=== PATIENT | male | born 1945 | race Caucasian/White ===

== ENCOUNTER 2017-08-16 11:51 | Emergency (ER) | payer OTHER ==
[2017-08-16 11:57] VITALS: BP 124/61; BMI 36.5
--- NOTE | 2017-08-16 14:00 | DR.MBACK ---
HPI - Time Seen Time seen: 14:30 - PCP Primary Care Physician: - HPI Comment HPI Comment: PAIN GETTING WORSE. - Complaint Chief Complaint Doctors Comments: MID AND LOWER BACK PAIN TIMES 4 DAYS DUE TO A FALL. Chief Complaint:: PT C/O TRIPPING AND FALLING ON WEDNESDAY NIGHT PT HIS THE CEMENT OUT SIDE .. PT C/O MID BACK PAIN.. PT C/O DULL PAIN ,, Self Treatment fo Chief Complaint: PT TOOK TYLENOL. - Reviewed Nurses Notes Review: Yes - Source History Provided: Patient, Family Member - Mode of Arrival Mode of Arrival: Ambulatory - Timing Onset of Chief Complaint: 08/12/17 - Duration Duration: Constant - Location Back Pain Location: Lower, BACK, Lumbar (AND MID BACK.) Radiation To: None - Severity Severity: Moderate - Quality Quality: Sharp - Context Onset: Fall History of: None - Modifying Factors Worsened By: Twisting - Associated Signs and Symptoms Back Pain Symptoms: None Numbness: None Weakness: None PMH - PMH Past Medical History: Yes Past Surgical History: Yes Surgical History: Angioplasty/Stents Past Surgical History Comment: MITRO VALVE CLIP, 5 CARDIAC STENTS, PACE MAKER, DEFIBRILATOR. - Family History History of Family Medical Conditions: No Family Medical History: Cancer, Heart Failure - Social History Does patient currently use any type of tobacco product: No Have you used tobacco products in the last 12 months: No Type of Tobacco Use: None Does any household member use tobacco: No Alcohol Use: None Do you use any recreational Drugs:: No Lives With: Family Lives Where: Home - infectious screening In the last 2 months have you had wt loss of >10#?: NO Have you had fever, night sweats or hemotysis?: No Have you traveled outside the country in the last 6 months?: No Isolation: Standard ROS - Review of Systems Constitutional: No Symptoms Reported Eyes: No Symptoms Reported ENTM: No Symptoms Reported Respiratoy: No Symptoms Reported Cardiovascular: No Symptoms Reported Gastrointestinal/Abdominal: No Symptoms Reported Genitourinary: No Symptoms Reported Neurological: No Symptoms Reported Musculoskeletal: Back Pain, Muscle Pain, Back Integumentary: No Symptoms Reported Hematologic/Lymphatic: No Symptoms Reported Endocrine: No Symptoms Reported All Other Systems: Reviewed and Negative PE - Vital Signs Vitals: Temperature 98.0 F Pulse Rate 76 Respiratory Rate 20 Blood Pressure 124/61 O2 Sat by Pulse Oximetry 96 - General Limitations: No Limitations General Appearance: Alert - Head Head Exam: Normal Inspection - Eyes Eye exam: Normal Appearance - ENT ENT Exam: Normal External Ear Exam - Chest Chest Inspection: Symmetric Chest Wall Rise - Respiratory Respiratory Exam: Normal Lung Sounds Bilat Respiratory Exam: Bilateral Clear to Auscultation - Cardiovascular Cardiovascular Exam: Regular Rate, Normal Rhythm, Normal Heart Sounds - Abdominal Exam Abdominal Exam: Normal Inspection - Rectal Rectal Exam: Deferred - Genitourinary Exam: Male: Deferred - Extremities Extremities Exam: Normal Inspection - Back Back Exam: Paraspinal Tenderness (MID AND LOWER BACK.) - Neurological Neurological Exam: Alert, Oriented X3. negative: Motor Sensory Deficit - Psychiatric Psychiatric Exam: Normal Affect, Normal Mood - Skin Skin Exam: Normal Color MDM - Additional Information Additional Information Obtained From: Family - Differential Diagnosis Differential Diagnosis: DJD, Fracture, Musculoskeletal Pain, Strain Course - Treatment Treatment: SEE ORDERS. IM MEDSX IN ED. - Education/Counseling Education/Counseling: Patient, Family, Education Educated On: Treatment, Diagnosis, Needs for Follow Up ROR - XRAY XRAY Interpreted by: Radiologist XRAY Findings: REPORT DISCUSS WITH PATIENT. - Diagnosis Discharge Problem: Back strain Qualifiers: Encounter type: initial encounter Qualified Code(s): S39.012A - Strain of muscle, fascia and tendon of lower back, initial encounter Strain of thoracic spine Qualifiers: Encounter type: initial encounter Qualified Code(s): S29.019A - Strain of muscle and tendon of unspecified wall of thorax, initial encounter Lumbar spine strain Qualifiers: Encounter type: initial encounter Qualified Code(s): S39.012A - Strain of muscle, fascia and tendon of lower back, initial encounter - Discharge Plan Disposition: 01 HOME, SELF-CARE Condition: Stable Prescriptions: Ibuprofen [MOTRIN TAB 600 MG *] 600 mg PO TID PRN #30 tab PRN Reason: Pain/Inflammation Methylprednisolone Dosepak 4Mg [MEDROL DOSEPAK (4 mg tab x 21)] 1 shanon PO ONCE # 1 shanon - Follow ups/Referrals Follow ups/Referrals: Kate Bobo [Primary Care Provider] - 3 days - Instructions Instructions: Mid-Back Strain, Lumbosacral Strain Additional Instructions: RETURN TO ED IF WORSE.
[2017-08-16] MEDS ORDERED: TORADOL 60 MG VIAL IM ONE (14:38)
[2017-08-16] MEDS ORDERED: NORFLEX INJ IM ONE (14:38)
[2017-08-16] MEDS ORDERED: TORADOL 60 MG VIAL ONE (14:39)
[2017-08-16] MEDS ORDERED: NORFLEX INJ ONE (14:40)
--- NOTE | 2017-08-16 14:55 | RAD ---
HISTORY: Injury, fall, low back pain Study: Lumbar spine AP, lateral, spot Comparison: None Findings: The bones are osteopenic. The alignment is normal. The lumbar vertebral bodies are of average height. There is mild loss of height in T11 and T12 age indeterminate. Degenerative disc disease is present at L1-2, L4-5, L5-S1. The pedicles are intact. The SI joints are normal. Diffuse bilateral facet dege nerative joint disease is present. Diffuse aortic calcifications are incidentally noted. No aneurysma l dilatation is identified. IMPRESSION: Mild loss of height T11, T12 age indeterminate Osteopenia Multilevel degenerative disc disease as described Diffuse bilateral facet degenerative joint disease Reported By:
--- NOTE | 2017-08-16 16:29 | CT ---
HISTORY: Back pain status post fall. Study: CT thoracic spine without contrast Comparison: Lumbar spine series dated same day. Technique: Multiple axial images of the thoracic spine were obtained from the thoracic inlet to the t horacolumbar junction. Sagittal and coronal reconstructions were performed and reviewed. Dose reduc tion techniques including Automated Exposure Control (AEC) and adjustment of mA and kV were utilized. Findings: Anterior compression fractures are seen of the T10, T11, and T12 vertebral bodies of unknown chronici ty. These do not appear significantly changed given technique from same day comparison. No significan t retropulsion of fracture fragments or spinal canal stenosis. Approximately 35% anterior disc height loss at T10, 42% anterior disc height loss at T11, and 30% anterior disc height loss at T12. No othe r obvious fractures. No significant spinal canal stenosis or neural foraminal narrowing. Extensive va scular calcifications of the thoracic and abdominal aorta. Aneurysmal dilatation of the thoracic aort ic root to 4.7 cm. Cardiomegaly. Postsurgical changes status post CABG. Remaining soft tissue structu res are unremarkable. IMPRESSION: 1. Anterior compression fractures of the T10 through T12 vertebral bodies of unknown chronicity as a shin. If patient has point tenderness, recommend MRI of the spine on outpatient basis. 2. Aneurysmal dilatation of the thoracic aortic root to 4.7 cm. Reported By:
== END 2017-08-16 16:53 | disposition home or self-care (01) ==
LOC: ER 12:06
DX: S39.012A Strain of muscle, fascia and tendon of lower back, initial encounter (principal); S29.019A Strain of muscle and tendon of unspecified wall of thorax, initial encounter; I71.2 Thoracic aortic aneurysm, without rupture; M85.80 Other specified disorders of bone density and structure, unspecified site
CPT/HCPCS: 72100; 72128; 96372; 99282; 99283; J1885; J2360

== ENCOUNTER 2017-09-12 11:05 | Emergency (ER) | payer OTHER ==
[2017-09-12 11:15] VITALS: BP 143/64; BMI 37.7
--- NOTE | 2017-09-12 11:51 | DR.GENAD ---
HPI - PCP Primary Care Physician: sue - HPI Comment HPI Comment: PATIENT HAD HYPOGLYCEMIC EPISODE AT HOME. FEW DAYS AGO SAME THING HAPPEN. PATIENT ON ORAL AGENTS FOR DIABETES. GIVEN FOOD IN ED. - Complaint/Symptoms Chief Complaint Doctors Comments: LOW GLUCOSE AT HOME. Chief Complaint:: "sandy was 45 pt took meds this moring without checking sugar , he is feeling dizzy" - Nurses notes reviewed Nurses Notes Review: Yes - Source History Provided: Patient - Mode of Arrival Mode of Arrival: Wheelchair - Timing Onset of Chief Complaint: 09/12/17 Came on: Suddenly - Duration Duration: Since Onset Duration: Minutes - Severity Severity: Moderate PMH - PMH Past Medical History: Yes Past Medical History: Diabetes, GERD, Hypertension Past Surgical History: Yes Surgical History: Other Past Surgical History Comment: pacemaker,stents - Family History History of Family Medical Conditions: Yes Family Medical History: Cancer, Heart Failure - Social History Does patient currently use any type of tobacco product: No Have you used tobacco products in the last 12 months: No Type of Tobacco Use: None Does any household member use tobacco: No Alcohol Use: None Do you use any recreational Drugs:: No Lives With: Family Lives Where: Home - infectious screening In the last 2 months have you had wt loss of >10#?: NO Have you had fever, night sweats or hemotysis?: No Have you traveled outside the country in the last 6 months?: No Isolation: Standard ROS - Review of Systems Constitutional: Weakness, Fatigue. negative: Chills, Fever Eyes: Blurred Vision. negative: Eye Pain, Discharge ENTM: No Symptoms Reported. negative: Ear Discharge, Nose Discharge, Nose Congestion, Throat Pain Respiratoy: No Symptoms Reported. negative: Productive Cough, Short of Breath, Wheezing, Hemoptysis Cardiovascular: No Symptoms Reported. negative: Chest Pain, Edema Gastrointestinal/Abdominal: No Symptoms Reported. negative: Abdominal Pain, Diarrhea, Nausea, Vomiting Genitourinary: No Symptoms Reported. negative: Dysuria, Frequency, Hematuria Neurological: Weakness, Dizziness. negative: Headache Musculoskeletal: Muscle Pain Integumentary: No Symptoms Reported Hematologic/Lymphatic: Easy Bruising Endocrine: Other (HYPOGLYCEMIA) All Other Systems: Reviewed and Negative PE - Vital Signs Vitals: Temperature 97.5 F Pulse Rate 88 Respiratory Rate 18 Blood Pressure 143/64 O2 Sat by Pulse Oximetry 98 - General Limitations: No Limitations General Appearance: Alert - Head Head Exam: Normal Inspection - Eyes Eye exam: Normal Appearance - ENT ENT Exam: Normal External Ear Exam External Ear Exam: Normal External Inspection TM/Canal Exam: Bilateral Normal Nose Exam: Normal Nose Exam Mouth Exam: Normal Inspection Throat Exam: Normal Inspection - Neck Neck Exam: Trachea Midline - Chest Chest Inspection: Normal Inspection - Respiratory Respiratory Exam: Normal Lung Sounds Bilat Respiratory Exam: Bilateral Clear to Auscultation - Cardiovascular Cardiovascular Exam: Regular Rate, Normal Rhythm, Normal Heart Sounds - Abdominal Exam Abdominal Exam: Normal Bowel Sounds, Soft. negative: Tenderness - Extremities Extremities Exam: Normal Inspection - Back Back Exam: Normal Inspection - Neurologic Neurological Exam: Alert, Oriented X3 - Psychiatric Psychiatric Exam: Normal Affect, Normal Mood - Skin Skin Exam: Normal Color MDM - Additional Information Additional Information Obtained From: Family - Differential Diagnosis Differential Diagnosis: HYPOGLYCEMIA, AMS Course - Treatment Treatment: SEE ORDERS. - Reevaluation 1st: Improved (WITH IV D50 AND ORAL CALORIES.) - Education/Counseling Education/Counseling: Patient, Family, Education Educated On: Treatment, Diagnosis, Needs for Follow Up ROR - Labs Reviewed Laboratory Results Reviewed?: Yes Result Diagrams: 09/12/17 13:02 09/12/17 13:02 Laboratory: WBC 5.4 X10^3/uL (3.6-10.0) 09/12/17 13:02 RBC 3.73 X10^6/uL (4.7-6.0) L 09/12/17 13:02 Hgb 11.9 g/dL (13.5-18.0) L 09/12/17 13:02 Hct 36.0 % (42.0-54.0) L 09/12/17 13:02 MCV 96.5 fL (80.0-100.0) 09/12/17 13:02 MCH 31.9 pg (27.0-34.0) 09/12/17 13:02 MCHC 33.1 g/dL (33.0-35.0) 09/12/17 13:02 RDW 18.5 % (11.6-16.5) H 09/12/17 13:02 Plt Count 216 X10^3/uL (150.0-450.0) 09/12/17 13:02 MPV 8.8 fL (7.4-11.0) 09/12/17 13:02 Neut % (Auto) 78.7 % (42.0-75.0) H 09/12/17 13:02 Lymph % (Auto) 15.4 % (21.0-51.0) L 09/12/17 13:02 [place] % (Auto) 5.5 % (0.0-13.0) 09/12/17 13:02 Eos % (Auto) 0.0 % (0.9-2.9) L 09/12/17 13:02 Baso % (Auto) 0.4 % (0.2-1.0) 09/12/17 13:02 Neut # (Auto) 4.2 x10^3/uL (2.2-4.8) 09/12/17 13:02 Lymph # (Auto) 0.8 X10^3/uL (1.3-2.9) L 09/12/17 13:02 [place] # (Auto) 0.3 x10^3/uL (0.3-0.8) 09/12/17 13:02 Eos # (Auto) 0.0 x10^3/uL (0.0-0.2) 09/12/17 13:02 Baso # (Auto) 0.0 X10^3/uL (0.0-0.1) 09/12/17 13:02 Absolute Nucleated RBC 0.1 /100WBC 09/12/17 13:02 Sodium 141 mmol/L (136-145) 09/12/17 13:02 Corrected Sodium 142 mmol/L (136-145) 09/12/17 13:02 Potassium 5.0 mmol/L (3.5-5.1) 09/12/17 13:02 Chloride 103 mmol/L (98-107) 09/12/17 13:02 Carbon Dioxide 18.8 mmol/L (21-32) L 09/12/17 13:02 BUN 34 mg/dL (7-18) H 09/12/17 13:02 Creatinine 1.61 mg/dL (0.70-1.30) H 09/12/17 13:02 Est GFR (MDRD) Af Amer 55 (>60) L 09/12/17 13:02 Est GFR (MDRD) Non-Af 45 (>60) L 09/12/17 13:02 Glucose 146 mg/dL (65-99) H 09/12/17 13:02 POC Glucose (mg/dL) 196 mg/dL (65-99) H 09/12/17 14:57 Calcium 8.8 mg/dL (8.5-10.1) 09/12/17 13:02 Corrected Calcium 9.4 mg/dL (8.5-10.1) 09/12/17 13:02 Total Bilirubin 0.40 mg/dL (0.2-1.0) 09/12/17 13:02 AST 21 Units/L (15-37) 09/12/17 13:02 ALT 18 Units/L (12-78) 09/12/17 13:02 Alkaline Phosphatase 95 Units/L (46-116) 09/12/17 13:02 Total Protein 7.0 g/dL (6.4-8.2) 09/12/17 13:02 Albumin 3.3 g/dL (3.4-5.0) L 09/12/17 13:02 Globulin 3.7 g/dL (2.5-4.5) 09/12/17 13:02 Albumin/Globulin Ratio 0.9 Ratio (1.1-2.1) L 09/12/17 13:02 Specimen Type Random urine 09/12/17 14:38 Urine Color Dark yellow (YELLOW) 09/12/17 14:38 Urine Appearance Clear (CLEAR) 09/12/17 14:38 Urine pH 5.0 (5.0 - 8.0) 09/12/17 14:38 Ur Specific [place] 1.015 (1.000-1.030) 09/12/17 14:38 Urine Protein Negative (NEGATIVE) 09/12/17 14:38 Urine Glucose (UA) Negative (NEGATIVE) 09/12/17 14:38 Urine Ketones 1+ (NEGATIVE) 09/12/17 14:38 Urine Occult Blood Negative (NEGATIVE) 09/12/17 14:38 Urine Nitrite Negative (NEGATIVE) 09/12/17 14:38 Urine Bilirubin Negative (NEGATIVE) 09/12/17 14:38 Urine Urobilinogen Normal (NORMAL) 09/12/17 14:38 Ur Leukocyte Esterase Negative (NEGATIVE) 09/12/17 14:38 - Diagnosis Discharge Problem: Hypoglycemia - Discharge Plan Disposition: 01 HOME, SELF-CARE Condition: Stable - Follow ups/Referrals Follow ups/Referrals: Zaina Bobo [Primary Care Provider] - 09/13/17 - Instructions Instructions: Hypoglycemia, [id number] Additional Instructions: RETURN TO ED IF WORSE. GLUCOSE CHECK EVERY 4HS AND CHART AND TAKE TO YOUR
[2017-09-12 13:10] LABS: BASOPHILS % (AUTO) 0.4 % (0.2-1.0); HEMOGLOBIN 11.9 g/dL (13.5-18.0); LYMPHOCYTES # (AUTO) 0.8 X10^3/uL (1.3-2.9); LYMPHOCYTES % (AUTO) 15.4 % (21.0-51.0); MEAN CORPUSCULAR HEMOGLOBIN 31.9 pg (27.0-34.0); MEAN CORPUSCULAR HGB CONC 33.1 g/dL (33.0-35.0); MEAN CORPUSCULAR VOLUME 96.5 fL (80.0-100.0); MEAN PLATELET VOLUME 8.8 fL (7.4-11.0); MONOCYTES # (AUTO) 0.3 x10^3/uL (0.3-0.8); MONOCYTES % (AUTO) 5.5 % (0.0-13.0); NEUTROPHILS # (AUTO) 4.2 x10^3/uL (2.2-4.8); NEUTROPHILS % (AUTO) 78.7 % (42.0-75.0); PLATELET COUNT 216 X10^3/uL (150.0-450.0); RED BLOOD COUNT 3.73 X10^6/uL (4.7-6.0); RED CELL DISTRIBUTION WIDTH 18.5 % (11.6-16.5); WHITE BLOOD COUNT 5.4 X10^3/uL (3.6-10.0)
[2017-09-12 13:20] LABS: ALBUMIN 3.3 g/dL (3.4-5.0); CALCIUM 8.8 mg/dL (8.5-10.1); CARBON DIOXIDE 18.8 mmol/L (21-32); COR CA(FOR HYPOALB) 9.4 mg/dL (8.5-10.1); CREATININE 1.61 mg/dL (0.70-1.30)
[2017-09-12 14:47] LABS: BILIRUBIN,URINE NEGATIVE (NEGATIVE); BLOOD/HEMOGLOBIN,URINE NEGATIVE (NEGATIVE); GLUCOSE, URINE NEGATIVE (NEGATIVE); KETONES,URINE 1+ (NEGATIVE); LEUKOCYTE ESTERASE ,URINE NEGATIVE (NEGATIVE); NITRITES,URINE NEGATIVE (NEGATIVE); PROTEIN,URINE NEGATIVE (NEGATIVE); UROBILINOGEN,URINE NORMAL (NORMAL)
[2017-09-12 14:48] LABS: APPEARANCE,URINE CLEAR (CLEAR); COLOR,URINE DARK YELLOW (YELLOW)
== END 2017-09-12 15:15 | disposition home or self-care (01) ==
LOC: ER 11:26
DX: E16.2 Hypoglycemia, unspecified (principal)
CPT/HCPCS: 36415; 80053; 81003; 85025; 99281; 99282; 99283

== ENCOUNTER 2019-01-22 10:20 | Observation (INO) ==
[2019-01-22 10:26] VITALS: BMI 32.1
[2019-01-22] MEDS ORDERED: DUONEB 0.5 MG/3 MG NEB ONE (10:40)
--- NOTE | 2019-01-22 10:44 | DR.URIAD ---
HPI - Time Seen Time seen: 10:40 - PCP Primary Care Physician: MARINA - HPI Comment HPI Comment: 73 y/o with home oxygen for copd now with cough, head congestion and wheezing for the past week; productive sputum which acutely worsened this a m; he is on oxygen now and feels sob is at baseline; no fever or chills, nausea or vomiting. - Complaint Chief Complaint:: PT C/O C/C/C SHORTNESS OF BREATH. PT'S FAMILY STATES PT GETS WORSE AT NIGHT. PT STATES HE HAS BEEN COUGHING UP THICK YELLOW SPUTUM. PT'S F AMILY STATES HE WAS RECENTLY IN THE HOSPITAL FOR HEART FAILURE. FAMILY AND PT STATES THIS HAS BEEN GOING ON FOR APPROX 2 WEEKS BUT IT IS JUST GETTING WORSE THIS MORNING. - Source History Provided: Patient - Mode of Arrival Mode of Arrival: Ambulatory - Timing Onset of Chief Complaint: 01/08/19 - Quality Shortness of Breath: Mild PMH - PMH Past Medical History: Yes Past Medical History: COPD, Coronary Artery Disease, Diabetes, Dyslipidemia, GERD, Hypertension, CT, Renal Disease Past Medical History Comment: AFIB Past Surgical History: Yes Surgical History: Angioplasty/Stents, CABG/Valve Surgery, Other Past Surgical History Comment: HEMMRHOID - Family History History of Family Medical Conditions: Yes Family Medical History: Cancer, Heart Failure - Social History Does any household member use tobacco: No Alcohol Use: None Do you use any recreational Drugs:: No Lives With: Family Lives Where: Home - infectious screening In the last 2 months have you had wt loss of >10#?: NO Have you had fever, night sweats or hemotysis?: No Have you traveled outside the country in the last 6 months?: No Isolation: Standard ROS - Review of Systems Constitutional: No Symptoms Reported Eyes: No Symptoms Reported Respiratoy: See HPI Cardiovascular: No Symptoms Reported Gastrointestinal/Abdominal: No Symptoms Reported Genitourinary: No Symptoms Reported Neurological: No Symptoms Reported Musculoskeletal: Joint Pain Integumentary: No Symptoms Reported Hematologic/Lymphatic: No Symptoms Reported Endocrine: No Symptoms Reported (no sweating or flushing) Psychiatric: No Symptoms Reported PE - General Limitations: No Limitations General Appearance: Alert, In No Apparent Distress (nc in place) - Head Head Exam: Normal Inspection - Eyes Eye exam: Normal Appearance - ENT ENT Exam: Normal Exam - Neck Neck Exam: Normal Inspection - Chest Chest Inspection: Normal Inspection - Respiratory Respiratory Exam: Prolonged Expiratory Phase Respiratory Exam: Bilateral Crackles (rul/lll), Bilateral Decreased Breath Sounds - Cardiovascular Cardiovascular Exam: Regular Rate, Normal Rhythm - Abdominal Exam Abdominal Exam: Normal Inspection, Normal Bowel Sounds, Soft - Back Back Exam: Normal Inspection, Full ROM, Tenderness - Neurologic Neurological Exam: Alert, Oriented X3, CN II-XII Intact - Psychiatric Psychiatric Exam: Normal Affect, Normal Mood - Skin Skin Exam: Warm, Dry - Vital Signs Vitals: Temperature 97.9 F Pulse Rate 97 Respiratory Rate 20 Blood Pressure 121/69 O2 Sat by Pulse Oximetry 96 Course - Reevaluation 1st: Improved - Consultation Call Returned: 15:10 (Dr Oswald accepts pt) ROR - Labs Reviewed Result Diagrams: 01/22/19 10:50 01/22/19 10:50 - XRAY XRAY Interpreted by: Radiologist (Lingular atelectasis versus early infiltrate.) - Labs Reviewed Laboratory: WBC 6.2 X10^3/uL (3.6-10.0) 01/22/19 10:50 RBC 3.89 X10^6/uL (4.7-6.0) L 01/22/19 10:50 Hgb 13.3 g/dL (13.5-18.0) L 01/22/19 10:50 Hct 39.1 % (42.0-54.0) L 01/22/19 10:50 MCV 100.7 fL (80.0-100.0) H 01/22/19 10:50 MCH 34.1 pg (27.0-34.0) H 01/22/19 10:50 MCHC 33.9 g/dL (33.0-35.0) 01/22/19 10:50 RDW 14.4 % (11.6-16.5) 01/22/19 10:50 Plt Count 171 X10^3/uL (150.0-450.0) 01/22/19 10:50 MPV 9.4 fL (7.4-11.0) 01/22/19 10:50 Neut % (Auto) 69.0 % (42.0-75.0) 01/22/19 10:50 Lymph % (Auto) 20.3 % (21.0-51.0) L 01/22/19 10:50 [place] % (Auto) 9.1 % (0.0-13.0) 01/22/19 10:50 Eos % (Auto) 1.2 % (0.9-2.9) 01/22/19 10:50 Baso % (Auto) 0.4 % (0.2-1.0) 01/22/19 10:50 Neut # (Auto) 4.3 x10^3/uL (2.2-4.8) 01/22/19 10:50 Lymph # (Auto) 1.3 X10^3/uL (1.3-2.9) 01/22/19 10:50 [place] # (Auto) 0.6 x10^3/uL (0.3-0.8) 01/22/19 10:50 Eos # (Auto) 0.1 x10^3/uL (0.0-0.2) 01/22/19 10:50 Baso # (Auto) 0.0 X10^3/uL (0.0-0.1) 01/22/19 10:50 Absolute Nucleated RBC 0.0 /100WBC 01/22/19 10:50 Sodium 142 mmol/L (136-145) 01/22/19 10:50 Corrected Sodium 142 mmol/L (136-145) 01/22/19 10:50 Potassium 4.2 mmol/L (3.5-5.1) 01/22/19 10:50 Chloride 105 mmol/L (98-107) 01/22/19 10:50 Carbon Dioxide 31.3 mmol/L (21-32) 01/22/19 10:50 BUN 18 mg/dL (7-18) 01/22/19 10:50 Creatinine 1.30 mg/dL (0.70-1.30) 01/22/19 10:50 Est GFR (MDRD) Af Amer > 60 (>60) 01/22/19 10:50 Est GFR (MDRD) Non-Af 58 (>60) L 01/22/19 10:50 Glucose 111 mg/dL (65-99) H 01/22/19 10:50 Calcium 8.6 mg/dL (8.5-10.1) 01/22/19 10:50 Corrected Calcium TNP 01/22/19 10:50 Total Bilirubin 0.70 mg/dL (0.2-1.0) 01/22/19 10:50 AST 21 Units/L (15-37) 01/22/19 10:50 ALT 8 Units/L (12-78) L 01/22/19 10:50 Alkaline Phosphatase 76 Units/L (46-116) 01/22/19 10:50 Total Protein 7.0 g/dL (6.4-8.2) 01/22/19 10:50 Albumin 3.4 g/dL (3.4-5.0) 01/22/19 10:50 Globulin 3.6 g/dL (2.5-4.5) 01/22/19 10:50 Albumin/Globulin Ratio 0.9 Ratio (1.1-2.1) L 01/22/19 10:50 Opioid - Opioid Risk Tool Total: 0 Total Score Risk Category: Low Risk - Diagnosis Discharge Problem: Lingular pneumonia, Dyspnea on exertion, COPD exacerbation - Discharge Plan Disposition: ADMITTED INPATIENT Condition: Stable - Follow ups/Referrals Follow ups/Referrals: Kate Bobo [Primary Care Provider] - 3 days - Instructions Instructions: Community-Acquired Pneumonia, Adult
[2019-01-22] MEDS ORDERED: DUONEB 0.5 MG/3 MG ONE (10:45)
[2019-01-22 11:12] LABS: BASOPHILS % (AUTO) 0.4 % (0.2-1.0); EOSINOPHILS # (AUTO) 0.1 x10^3/uL (0.0-0.2); EOSINOPHILS % (AUTO) 1.2 % (0.9-2.9); HEMATOCRIT 39.1 % (42.0-54.0); HEMOGLOBIN 13.3 g/dL (13.5-18.0); LYMPHOCYTES # (AUTO) 1.3 X10^3/uL (1.3-2.9); LYMPHOCYTES % (AUTO) 20.3 % (21.0-51.0); MEAN CORPUSCULAR HEMOGLOBIN 34.1 pg (27.0-34.0); MEAN CORPUSCULAR HGB CONC 33.9 g/dL (33.0-35.0); MEAN CORPUSCULAR VOLUME 100.7 fL (80.0-100.0); MEAN PLATELET VOLUME 9.4 fL (7.4-11.0); MONOCYTES # (AUTO) 0.6 x10^3/uL (0.3-0.8); MONOCYTES % (AUTO) 9.1 % (0.0-13.0); NEUTROPHILS # (AUTO) 4.3 x10^3/uL (2.2-4.8); PLATELET COUNT 171 X10^3/uL (150.0-450.0); RED BLOOD COUNT 3.89 X10^6/uL (4.7-6.0); RED CELL DISTRIBUTION WIDTH 14.4 % (11.6-16.5); WHITE BLOOD COUNT 6.2 X10^3/uL (3.6-10.0)
[2019-01-22 11:26] LABS: ALANINE AMINOTRANSFERASE 8 Units/L (12-78); ALBUMIN 3.4 g/dL (3.4-5.0); ALKALINE PHOSPHATASE 76 Units/L (46-116); ASPARTATE AMINO TRANSFERASE 21 Units/L (15-37); BLOOD UREA NITROGEN 18 mg/dL (7-18); CALCIUM 8.6 mg/dL (8.5-10.1); CARBON DIOXIDE 31.3 mmol/L (21-32); CHLORIDE 105 mmol/L (98-107); COR NA(FOR HYPERGLY) 142 mmol/L (136-145); SODIUM 142 mmol/L (136-145); eGFR NON BLACK RACES 58 (>60)
[2019-01-22] MEDS ORDERED: LASIX IM ONE (12:36)
[2019-01-22] MEDS ORDERED: ROCEPHIN VIAL 1 GRAM IM ONE (12:37)
--- NOTE | 2019-01-22 13:54 | RAD ---
HISTORY: Cough and congestion. Study: PA and lateral chest. Comparison: None available. Findings: The trachea is midline. The cardiac silhouette is enlarged without overt signs of failure. Prominent perihilar vasculature. Postsurgical changes status post CABG. Multi lead left chest cardiac pacemaker. Chronic emphysematous changes. Lingular atelectasis versus early infiltrate. No significant pleural effusion or pneumothorax. The bony thorax is unremarkable. IMPRESSION: Lingular atelectasis versus early infiltrate. Reported By:
[2019-01-22] MEDS ORDERED: LASIX IVP ONE ×2 (13:55→14:44)
[2019-01-22] MEDS ORDERED: ROCEPHIN VIAL 1 GRAM IVP ONE (13:55)
[2019-01-22] MEDS ORDERED: ROCEPHIN VIAL 1 GRAM ONE (13:57)
[2019-01-22] MEDS ORDERED: LASIX ONE ×2 (13:57→14:44)
[2019-01-22] MEDS ORDERED: ZITHROMAX INJ 500 MG VIAL ONE (15:49)
[2019-01-22] MEDS ORDERED: NS 250 ML IV 500 ML ONE (15:49)
[2019-01-22] MEDS: ZITHROMAX INJ 500 MG VIAL 500 MG in NS 250 ML IV 250 ML IV SCH (16:14)
[2019-01-22] MEDS: ROCEPHIN VIAL 1 GRAM IVP SCH (16:17)
[2019-01-22] MEDS: XOPENEX 1.25 MG/3 ML NEBULE NEB SCH (17:14)
[2019-01-22] MEDS ORDERED: DUONEB 0.5 MG/3 MG NEB SCH (18:00)
[2019-01-22] MEDS: LASIX IVP SCH (20:38)
[2019-01-22] MEDS: AMBIEN PO PRN (22:33)
[2019-01-22] MEDS ORDERED: STERILE WATER IRRIGATION ONE (22:47)
[2019-01-23] MEDS: XOPENEX 1.25 MG/3 ML NEBULE NEB SCH ×5 (01:10→17:05)
[2019-01-23 05:34] LABS: BASOPHILS % (AUTO) 0.5 % (0.2-1.0); EOSINOPHILS # (AUTO) 0.1 x10^3/uL (0.0-0.2); HEMATOCRIT 36.4 % (42.0-54.0); HEMOGLOBIN 12.2 g/dL (13.5-18.0); LYMPHOCYTES # (AUTO) 1.6 X10^3/uL (1.3-2.9); LYMPHOCYTES % (AUTO) 21.9 % (21.0-51.0); MEAN CORPUSCULAR HGB CONC 33.4 g/dL (33.0-35.0); MEAN CORPUSCULAR VOLUME 101.8 fL (80.0-100.0); MEAN PLATELET VOLUME 9.8 fL (7.4-11.0); MONOCYTES # (AUTO) 0.8 x10^3/uL (0.3-0.8); MONOCYTES % (AUTO) 11.6 % (0.0-13.0); NEUTROPHILS # (AUTO) 4.6 x10^3/uL (2.2-4.8); PLATELET COUNT 144 X10^3/uL (150.0-450.0); RED BLOOD COUNT 3.58 X10^6/uL (4.7-6.0); WHITE BLOOD COUNT 7.2 X10^3/uL (3.6-10.0)
[2019-01-23 05:48] LABS: ALANINE AMINOTRANSFERASE 6 Units/L (12-78); ALKALINE PHOSPHATASE 61 Units/L (46-116); ASPARTATE AMINO TRANSFERASE 16 Units/L (15-37); BLOOD UREA NITROGEN 17 mg/dL (7-18); CALCIUM 8.3 mg/dL (8.5-10.1); CARBON DIOXIDE 29.3 mmol/L (21-32); CHLORIDE 104 mmol/L (98-107); COR CA(FOR HYPOALB) 9.1 mg/dL (8.5-10.1); SODIUM 144 mmol/L (136-145); TOTAL PROTEIN 6.5 g/dL (6.4-8.2); eGFR NON BLACK RACES > 60 (>60)
[2019-01-23] MEDS ORDERED: POTASSIUM CHL 60 MEQ/NS 0.45% 500 ML IV PRN (05:50)
[2019-01-23] MEDS ORDERED: MICRO K EXTEN CAP 10 MEQ PO PRN (05:50)
[2019-01-23] MEDS ORDERED: K-DUR TAB 20 MEQ PO PRN (05:50)
[2019-01-23] MEDS ORDERED: POTASSIUM CHL 40 MEQ/NS 0.45% 500 ML IV PRN (05:50)
[2019-01-23] MEDS ORDERED: POTASSIUM CHLORIDE LIQ 20 MEQ UDC PO PRN (05:50)
[2019-01-23] MEDS ORDERED: KLOR-CON PO PRN (05:50)
[2019-01-23] MEDS ORDERED: K-RIDER 10 MEQ/NS 100 ML 10 MEQ/100 ML BAG IV PRN (05:50)
[2019-01-23] MEDS ORDERED: ROBITUSSIN DM PO PRN (05:54)
[2019-01-23] MEDS: ROCEPHIN VIAL 1 GRAM IVP SCH (08:23)
[2019-01-23] MEDS: ZITHROMAX INJ 500 MG VIAL 500 MG in NS 250 ML IV 250 ML IV SCH (08:25)
[2019-01-23] MEDS: LASIX IVP SCH ×2 (08:26→21:00)
--- NOTE | 2019-01-23 08:29 | RAD ---
HISTORY: Shortness of breath, COPD, coronary artery disease, diabetes, hypertension, myocardial infarction. Study: Single-view chest, done portably Comparison: 01/22/2019. Findings: There are again changes of CABG with median sternotomy sutures, metallic markers and metallic sutures indicating coronary artery bypass grafts. Left-sided pacemaker/defibrillator is present with intact leads. Trachea is midline. There is cardiomegaly with atherosclerotic calcification of the aortic arch. Left lung is clear. A small focus of atelectasis or infiltrate is present in the right costophrenic angle with likely a small amount of pleural fluid. No CHF is seen. There is no evidence of pneumothorax. Osseous structures are intact. IMPRESSION: Stable postsurgical changes as noted above. Cardiomegaly. Atelectasis, infiltrate and/or pleural fluid in the right costophrenic angle. Reported By:
[2019-01-23] MEDS: ENTRESTO 24/26 MG TAB PO SCH ×2 (08:39→21:05)
[2019-01-23 08:43] LABS: ABG BASE EXCESS 8.3 mmol/L (-2.0-2.0)
[2019-01-23 08:44] LABS: ABG ALLEN TEST POS; ABG HCO3 32.8 mmol/L (22-26)
--- NOTE | 2019-01-23 08:52 | DR.H&P ---
H&P - History & Physical for Day of: H&P Date: 01/22/19 - Chief Complaint Chief Complaint: SOB, CHEST CONGESTION, CCC - History of Present Illness History of Present Illness: 73 WF ER ADMISSION WITH CO PT C/O C/C/C SHORTNESS OF BREATH. PT'S FAMILY STATES PT GETS WORSE AT NIGHT. PT STATES HE HAS BEEN COUGHING UP THICK YELLOW SPUTUM. PT'S FAMILY STATES HE WAS RECENTLY IN THE HOSPITAL FOR HEART FAILURE. FAMILY AND PT STATES THIS HAS BEEN GOING ON FOR APPROX 2 WEEKS BUT IT IS JUST GETTING WORSE THIS MORNING. PT HAS PMH OF CHF, CAD, CHRONIC AFIB/FLUTTER, HTN. FOLLOWED BY DR ROSEN FROM [facility]. PT CXR ON ADMISSION WITH INFILTRATE. PT STARTED ON PNEUMONIA PROTOCOL WITH IV DIURESIS. - Past Medical History Past Medical History: Arthritis, CHF, COPD, Coronary Artery Disease, Diabetes, Dyslipidemia, GERD, Hypertension, NV, Renal Disease - Past Surgical History Surgical History: Angioplasty/Stents, CABG/Valve Surgery, Other (HAS PACE/DEBIBRILLATOR) - Family History Family Medical History: Cancer, Heart Failure - Social History Does patient currently use any type of tobacco product: No Have you used tobacco products in the last 12 months: No Type of Tobacco Use: None How many years tobacco product used: 30 Does any household member use tobacco: No Alcohol Use: Occasionally Drug Use: None - Medications Home Medications: No Known Drug Allergies Allergy (Verified 08/16/17 11:53) CONTINUE taking the following medications atorvastatin 80 mg PO QHS 01/22/19 [History] carvedilol 3.125 mg PO BID 01/22/19 [History] clopidogrel [Plavix] 75 mg PO DAILY 01/22/19 [History] folic acid 1 mg PO DAILY 01/22/19 [History] furosemide 40 mg PO BID 01/22/19 [History] gemfibrozil 600 mg PO BID 01/22/19 [History] omeprazole 20 mg PO BID 01/22/19 [History] sacubitril-valsartan [Entresto] 1 tab PO BID 01/22/19 [History] - Review of Systems Constitutional: Weakness Eyes: No Symptoms Reported ENT: Nose Congestion Respiratory: Cough, Shortness of Breath, SOB with Excertion, Sputum Cardiovascular: Edema Gastrointestinal: No Symptoms Reported Genitourinary: No Symptoms Reported Musculoskeletal: No Symptoms Reported Skin: No Symptoms Reported Neurological: Weakness - Physical Exam Vital Signs: Temperature 98.1 F Pulse Rate [Right Brachial] 88 Pulse Rate 69 Respiratory Rate 20 Blood Pressure [Right Arm] 110/60 Blood Pressure 121/69 O2 Sat by Pulse Oximetry 93 Oriented: Normal Eyes: Normal Ear: Normal Nose: Normal Throat: Normal Respiratory: Rales Throughout, Wheezes Throughout, RLL Diminished, LLL Diminished Cardiovascular: Irregular, Edema (MILD BILATERAL LE EDEMA) : Normal Auscultation: Bowel Sounds: Normal Tenderness: Normal Skin: Decreased Turgur Musculoskeletal: Back:Lumbar Psychiatric: Anxiety Affect: Anxious Speech Pattern: Clear, Appropriate - Assessment/Plan (1) Lingular pneumonia Status: Acute Plan: ADMIT, CXR ON ADMISSION. IV ATBX THERAPY, RESP CONSULT. CONTINUOUS O2, DUO NEBS. LOVENOX PROPHALAXIS, SPUTUM CULTURE. STRICT I&OS (2) CHF (congestive heart failure) Status: Acute (3) CAD (coronary artery disease) Status: Acute (4) Hypertension Status: Acute (5) Chronic a-fib Status: Acute (6) Dyspnea on exertion Status: Acute (7) COPD exacerbation Status: Acute - Allergies Allergies/Adverse Reactions: Allergies Allergy/AdvReac Type Severity Reaction Status Date / Time No Known Drug Allergies Allergy Verified 08/16/17 11:53
[2019-01-23] MEDS: PriLOSEC PO SCH ×2 (08:53→21:05)
[2019-01-23] MEDS: LOPID PO SCH ×2 (08:53→21:05)
[2019-01-23] MEDS: COREG TAB 3.125 MG PO SCH ×2 (08:53→21:06)
[2019-01-23] MEDS: FOLIC ACID TAB 1 MG PO SCH (08:53)
[2019-01-23] MEDS: PLAVIX PO SCH (08:54)
[2019-01-23] MEDS: LOVENOX INJ 40 MG SYR SC SCH (08:54)
[2019-01-23 08:55] LABS: CKMB % 2.4 % (<4); CREATINE KINASE 68 Units/L (39-308); CREATINE KINASE MB 1.6 ng/mL (0-4.0); TROPONIN I < 0.02 ng/mL (0-1.5)
[2019-01-23] MEDS ORDERED: LASIX PO SCH (09:00)
[2019-01-23] MEDS: MAGNESIUM SULFATE 1 GRAM/100 mL PREMIX 1 GM/100 ML BAG IV PRN ×2 (11:27→12:30)
[2019-01-23] MEDS ORDERED: LIPITOR TAB 40 MG PO SCH (21:00)
[2019-01-23] MEDS: AMBIEN PO PRN (21:00)
[2019-01-24] MEDS: XOPENEX 1.25 MG/3 ML NEBULE NEB SCH ×2 (00:50→06:00)
[2019-01-24] MEDS: LASIX IVP SCH ×2 (04:35→05:52)
[2019-01-24 06:11] LABS: BASOPHILS % (AUTO) 0.3 % (0.2-1.0); EOSINOPHILS # (AUTO) 0.1 x10^3/uL (0.0-0.2); EOSINOPHILS % (AUTO) 2.1 % (0.9-2.9); HEMATOCRIT 35.3 % (42.0-54.0); HEMOGLOBIN 11.8 g/dL (13.5-18.0); LYMPHOCYTES # (AUTO) 1.7 X10^3/uL (1.3-2.9); LYMPHOCYTES % (AUTO) 30.2 % (21.0-51.0); MEAN CORPUSCULAR HEMOGLOBIN 33.4 pg (27.0-34.0); MEAN CORPUSCULAR HGB CONC 33.5 g/dL (33.0-35.0); MEAN CORPUSCULAR VOLUME 99.9 fL (80.0-100.0); MEAN PLATELET VOLUME 9.5 fL (7.4-11.0); MONOCYTES # (AUTO) 0.7 x10^3/uL (0.3-0.8); MONOCYTES % (AUTO) 13.3 % (0.0-13.0); NEUTROPHILS % (AUTO) 54.1 % (42.0-75.0); PLATELET COUNT 141 X10^3/uL (150.0-450.0); RED BLOOD COUNT 3.53 X10^6/uL (4.7-6.0); RED CELL DISTRIBUTION WIDTH 14.1 % (11.6-16.5); WHITE BLOOD COUNT 5.5 X10^3/uL (3.6-10.0)
[2019-01-24 06:21] LABS: ALANINE AMINOTRANSFERASE 9 Units/L (12-78); ALBUMIN 2.8 g/dL (3.4-5.0); ALKALINE PHOSPHATASE 56 Units/L (46-116); ASPARTATE AMINO TRANSFERASE 15 Units/L (15-37); BLOOD UREA NITROGEN 18 mg/dL (7-18); CALCIUM 8.2 mg/dL (8.5-10.1); CARBON DIOXIDE 32.8 mmol/L (21-32); CHLORIDE 104 mmol/L (98-107); COR CA(FOR HYPOALB) 9.2 mg/dL (8.5-10.1); CREATININE 1.11 mg/dL (0.70-1.30); SODIUM 142 mmol/L (136-145); TOTAL PROTEIN 5.9 g/dL (6.4-8.2); eGFR NON BLACK RACES > 60 (>60)
[2019-01-24] MEDS: ROCEPHIN VIAL 1 GRAM IVP SCH (08:52)
[2019-01-24] MEDS: COREG TAB 3.125 MG PO SCH (08:53)
[2019-01-24] MEDS: LOPID PO SCH (08:53)
[2019-01-24] MEDS: FOLIC ACID TAB 1 MG PO SCH (08:53)
[2019-01-24] MEDS: PriLOSEC PO SCH (08:53)
[2019-01-24] MEDS: LOVENOX INJ 40 MG SYR SC SCH (08:54)
[2019-01-24] MEDS: PLAVIX PO SCH (08:54)
[2019-01-24] MEDS: ENTRESTO 24/26 MG TAB PO SCH (08:54)
[2019-01-24] MEDS: ZITHROMAX INJ 500 MG VIAL 500 MG in NS 250 ML IV 250 ML IV SCH (08:55)
--- NOTE | 2019-01-24 09:35 | RAD ---
HISTORY: Shortness of breath, CHF. Prior history of COPD, coronary artery disease, diabetes, hypertension and myocardial infarction. Prior surgical history of CABG. Study: Single-view chest Comparison: 01/23/2019. Findings: There are again changes of CABG with median sternotomy sutures and metallic markers and surgical clips indicating coronary artery bypass grafts. Left-sided pacemaker/defibrillator is present with intact leads. Trachea is midline. There is cardiomegaly with atherosclerotic calcification and uncoiling of the aortic arch. There is very mild pulmonary vascular congestion. Increased interstitial markings are present bilaterally but these have improved compared to the prior study. There is improved aeration noted in the right lower lobe with near complete resolution of previously seen atelectasis, infiltrate or pleural fluid. No pneumothorax is seen. Osseous structures are intact. IMPRESSION: Postsurgical changes as noted above. Cardiomegaly with pulmonary vascular congestion. Improvement is noted as detailed above. There is near complete resolution of previously seen right lower lobe atelectasis, infiltrate or pleural fluid. Reported By:
[2019-01-24 16:13] VITALS: BP 124/58
== END 2019-01-24 15:45 | disposition home or self-care (01) ==
LOC: MED/SURG 10:20 → ER 10:20 → MED/SURG 15:32
PROVIDERS: ADMIT Internal Medicine; ATTEND Internal Medicine
DX: J44.1 Chronic obstructive pulmonary disease with (acute) exacerbation; I10 Essential (primary) hypertension; R06.2 Wheezing; I48.2 Chronic atrial fibrillation; Z99.81 Dependence on supplemental oxygen; E78.2 Mixed hyperlipidemia; I25.10 Atherosclerotic heart disease of native coronary artery without angina pectoris; E11.65 Type 2 diabetes mellitus with hyperglycemia; K21.9 Gastro-esophageal reflux disease without esophagitis; R26.89 Other abnormalities of gait and mobility; R94.31 Abnormal electrocardiogram [ECG] [EKG]; J18.8 Other pneumonia, unspecified organism
CPT/HCPCS: 36415; 36600; 71010; 71020; 71045; 71046; 80053; 82550; 82553; 82803; 83735; 84132; 84484; 85025; 87040; 87070; 87205; 93005; 94640; 94760; 96365; 96372; 96374; 96375; 97110; 97161; 97165; 99284; A4222; G0378; J0456; J0696; J1650; J1940; J3475; J7050; J7620